=== PATIENT | female | born 1945 | race Caucasian/White ===

== ENCOUNTER 2024-02-29 00:05 | Emergency (ER) | payer MEDICARE, MEDICAID ==
[~2024-02-29] VITALS: Ht 154.9 cm; Wt 68.0 kg
[2024-02-29 00:12] VITALS: BP 96/52; PULSE 85; RESP 20; TEMP 98.8; O2SAT 98
[2024-02-29 02:17] LABS: CARBON DIOXIDE 21 mEq/L (21-32); CHLORIDE 105 mEq/L (98-107); POTASSIUM 4.7 mEq/L (3.5-5.1); SODIUM 138 mEq/L (136-145)
[2024-02-29 02:18] LABS: CALCIUM 9.2 mg/dL (8.7-10.4)
[2024-02-29 02:23] LABS: GLUCOSE 145 mg/dL (70-105); UREA NITROGEN BLOOD 41 mg/dL (9-23)
[2024-02-29 02:25] LABS: TROPONIN I HIGH SENSITIVITY 9 ng/L (3.0-34)
[2024-02-29 02:30] LABS: INR 0.9; PARTIAL THROMBOPLASTIN TIME 27.2 sec (23.4-31.0); PROTHROMBIN TIME 10.6 sec (9.6-11.0)
[2024-02-29 02:36] LABS: ETHANOL BLOOD < 10 mg/dL (<10)
[2024-02-29 02:48] LABS: BASOPHILS % 0.5 % (0.0-2.0); EOSINOPHILS % 0.5 % (0.0-5.0); HEMOGLOBIN. 13.1 g/dL (12.0-16.0); LYMPHOCYTES % 12.2 % (20.0-50.0); MEAN CORPUSCULAR HEMOGLOBIN 29.5 pg (28.0-32.0); MEAN CORPUSCULAR HGB CONC 32.7 g/dL (31.0-37.0); MEAN CORPUSCULAR VOLUME 90.4 fL (81.0-99.0); MEAN PLATELET VOLUME 10.1 fl (7.4-10.4); NEUTROPHILS % 83.8 % (40.0-76.0); PLATELET 232 x1000/uL (130-400); RED BLOOD CELL COUNT 4.43 mill/uL (4.2-5.4); RED CELL DISTRIBUTION WIDTH 13.3 % (11.6-14.6); WHITE BLOOD COUNT 17.1 x1000/uL (4.5-11.0)
[2024-02-29] MEDS ORDERED: ACETAMINOPHEN 1000MG/100ML 100 ML IV ONE (03:00)
== END 2024-02-29 03:18 | disposition left against medical advice (07) ==
LOC: ER 00:05 → EDBD 00:05 → ER 03:18
DX: R07.9 Chest pain, unspecified (principal); K92.2 Gastrointestinal hemorrhage, unspecified; F41.9 Anxiety disorder, unspecified; I11.0 Hypertensive heart disease with heart failure; I50.9 Heart failure, unspecified
CPT/HCPCS: 36415; 71045; 80048; 80320; 83880; 84484; 85025; 86850; 86900; 93005; 99285; G0480